=== PATIENT | female | born 1980 | race Caucasian/White ===

== ENCOUNTER → 2020-04-22 | Outpatient (CLI) | payer OTHER ==
[~2020-04-22] MED LIST: ACETAMINOPHEN-1 EAC1 PO; BENZTROPINE MESY1 MG PO; CEFDINIR300 MG PO; CITALOPRAM HBR40 MG PO; CLEOCIN HCL300 MG PO; HALDOL 5 MG TAB5 MG PO; IBUPROFEN600 MG PO; MELOXICAM15 MG PO; METRONIDAZOLE500 MG PO; OLANZAPINE20 MG PO
== END ==
LOC: KOH-I 10:10
DX: M25.562 Pain in left knee (principal); R05 Cough; M54.5 Low back pain; R91.8 Other nonspecific abnormal finding of lung field; J90 Pleural effusion, not elsewhere classified; J98.11 Atelectasis
CPT/HCPCS: 71046; 72100; 73562

== ENCOUNTER → 2020-05-19 | Outpatient (CLI) | payer OTHER | LOC: KOH-I 09:10 | DX: J18.1 Lobar pneumonia, unspecified organism (principal); R91.8 Other nonspecific abnormal finding of lung field | CPT/HCPCS: 71046 ==

== ENCOUNTER → 2020-05-23 | Outpatient (CLI) | payer OTHER | LOC: KOH-I 11:02 | DX: R10.30 Lower abdominal pain, unspecified (principal) | CPT/HCPCS: 73522 ==

== ENCOUNTER 2020-05-29 10:15 | Inpatient (IN) | payer OTHER ==
[~2020-05-29] VITALS: Ht 175.3 cm; Wt 76.7 kg
[~2020-05-29 10:15] MED LIST changes: -ACETAMINOPHEN-1 EAC1 PO; -BENZTROPINE MESY1 MG PO; -CITALOPRAM HBR40 MG PO; -HALDOL 5 MG TAB5 MG PO; -MELOXICAM15 MG PO; -OLANZAPINE20 MG PO
[2020-05-29 11:16] LABS: HEMOGLOBIN 9.8 gm/dl (12.3-15.3); RED BLOOD COUNT 3.63 M/UL (4.00-5.10); WHITE BLOOD COUNT 17.7 K/UL (4.5-11.0)
[2020-05-29 11:39] LABS: BUN/CREATININE RATIO 14 (0-10)
[2020-05-29] MEDS ORDERED: BENZTROPINE MESY1 MG PO (13:44)
[2020-05-29] MEDS ORDERED: CITALOPRAM HBR40 MG PO (13:46)
[2020-05-29] MEDS ORDERED: HALDOL 5 MG TAB5 MG PO (13:48)
[2020-05-29] MEDS ORDERED: MELOXICAM15 MG PO (13:49)
[2020-05-29] MEDS ORDERED: OLANZAPINE20 MG PO (13:51)
[2020-05-29] MEDS ORDERED: ACETAMINOPHEN-1 EAC1 PO (14:37)
[2020-05-29 14:58] LABS: MONONUCLEAR CELLS 89.3 (75-100); POLYMORPHONUCLEAR % 10.7 (0-25); WBC (AUTOMATED) 335 (0-500)
[2020-05-29 14:59] LABS: RBC (AUTOMATED) 2200 (0-100000)
[2020-05-29 15:21] LABS: TOTAL PROTEIN, BODY FLUID 3.6 gm/dL
[2020-05-30 02:23] LABS: HEMOGLOBIN 8.6 gm/dl (12.3-15.3); RED BLOOD COUNT 3.31 M/UL (4.00-5.10); WHITE BLOOD COUNT 13.5 K/UL (4.5-11.0)
[2020-05-30 02:40] LABS: BUN/CREATININE RATIO 16 (0-10)
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
--- NOTE | 2020-05-30 11:00 | NUR ---
NO CHANGES FROM PREVIOUS ASSESSMENT, PT DROWSY AND SLEEPING A LOT
--- NOTE | 2020-05-30 13:50 | NUR ---
DR DOMINGUEZ CALLED TO INFORM ME OF ORDER TO HAVE HOSPITALIST ORDER BIOPSY OF RIGHT BREAST
--- NOTE | 2020-05-30 14:00 | NUR ---
DR SHAY CALLED TO CONSULT SURGERY FOR BIOPSY
--- NOTE | 2020-05-30 14:06 | NUR ---
DR BAGLEY NOTIFIED OF CONSULT FOR RIGHT BREAST BIOPSY
--- NOTE | 2020-05-30 16:00 | NUR ---
NO CHANGES FROM PREVIOUS ASSESSMENT
--- NOTE | 2020-05-31 08:54 | NUR ---
NOTIFIED DR SHAY OF FINDINGS ON HEAD CT THAT WAS RELAYED BY RADIOLOGIST OF A HEMORRHAGIC MASS SEEN. ORDERS TO MAKE SURE SHE'S NOT ON ANY ASA, LOVENOX, NOR HEPARIN.
--- NOTE | 2020-05-31 11:00 | NUR ---
PT A LITTLE MORE ANXIOUS THIS ASSESSMENT, REASSURED PT, OTHERWISE NO NEW CHANGES
--- NOTE | 2020-05-31 11:47 | NUR ---
DR DOMINGUEZ CALLED TO CHECK ON PT STATUS, ASKED FOR ATTENDING PHYSICIAN PHONE NUMBER
[2020-06-01 03:45] LABS: HEMOGLOBIN 8.8 gm/dl (12.3-15.3); RED BLOOD COUNT 3.25 M/UL (4.00-5.10); WHITE BLOOD COUNT 14.8 K/UL (4.5-11.0)
[2020-06-01 04:04] LABS: BUN/CREATININE RATIO 15 (0-10)
--- NOTE | 2020-06-01 20:00 | NUR ---
MD PERFORMED BESIDE THORACENTESIS. PT TOLERATED PROCEDURE WELL, VERBALIZED NEEDS DURING THE PROCEDURE, AND HAD NO COMPLAINTS.
[2020-06-01 21:10] LABS: BODY FLUID SOURCE PLEURAL
[2020-06-01 21:25] LABS: MONONUCLEAR CELLS 80 (75-100); POLYMORPHONUCLEAR % 20 (0-25); RBC (AUTOMATED) 6000 (0-100000); WBC (AUTOMATED) 106 (0-500)
[2020-06-01 21:42] LABS: TOTAL PROTEIN, BODY FLUID 5.9 gm/dL
[2020-06-01 21:43] LABS: LDH, BODY FLUID 745 U/L
[2020-06-02 02:59] LABS: HEMOGLOBIN 8.8 gm/dl (12.3-15.3); RED BLOOD COUNT 3.31 M/UL (4.00-5.10)
[2020-06-02 03:10] LABS: BUN/CREATININE RATIO 17 (0-10)
--- NOTE | 2020-06-02 10:06 | NUR ---
06/02/20 0950 PER RADIOLOGY NO ONE HERE TO DO ULTRASOUND GUIDED BIOPSY THIS WEEK, DR BAGLEY AND NOTIFIED
--- NOTE | 2020-06-02 12:54 | NUR ---
06/02/20 1250 TELE COVARRUBIAS NOTIFIED OF PATIENT GOING FOR A PROCEDURE
[2020-06-03 03:00] LABS: HEMOGLOBIN 9.1 gm/dl (12.3-15.3); RED BLOOD COUNT 3.36 M/UL (4.00-5.10); WHITE BLOOD COUNT 16.5 K/UL (4.5-11.0)
[2020-06-03 03:23] LABS: BUN/CREATININE RATIO 20 (0-10)
--- NOTE | 2020-06-05 05:46 | NUR ---
PT VERY SWEATY AND D/T NOT EATING AND DRINKING, FSBS WAS CHECKED AND IT WAS 144
== END 2020-06-08 19:18 | disposition expired | DRG 871 ==
LOC: ER1 10:15 → MED SURG 4 12:36 → PROG CARE 12:36 → CDU 12:36 → PROG CARE 17:40 → MED SURG 4 06-06 14:23
PROVIDERS: Family Medicine; Physician Assistant Medical; ADMIT Internal Medicine
PROC: 0W993ZZ Drainage of Right Pleural Cavity, Percutaneous Approach (ICD-10-PCS; principal; 2020-05-29)
PROC: 0W993ZX Drainage of Right Pleural Cavity, Percutaneous Approach, Diagnostic (ICD-10-PCS; 2020-05-29)
PROC: 0B9C8ZX Drainage of Right Upper Lung Lobe, Via Natural or Artificial Opening Endoscopic, Diagnostic (ICD-10-PCS; 2020-05-29)
PROC: 0BD38ZX Extraction of Right Main Bronchus, Via Natural or Artificial Opening Endoscopic, Diagnostic (ICD-10-PCS; 2020-05-29)
PROC: 0BD48ZX Extraction of Right Upper Lobe Bronchus, Via Natural or Artificial Opening Endoscopic, Diagnostic (ICD-10-PCS; 2020-05-29)
PROC: 03HY32Z Insertion of Monitoring Device into Upper Artery, Percutaneous Approach (ICD-10-PCS; 2020-05-29)
DX: A41.89 Other specified sepsis (principal); J96.01 Acute respiratory failure with hypoxia; I61.9 Nontraumatic intracerebral hemorrhage, unspecified; Z51.5 Encounter for palliative care; Z66 Do not resuscitate; Z20.822 Contact with and (suspected) exposure to COVID-19; J15.9 Unspecified bacterial pneumonia; G93.41 Metabolic encephalopathy; C78.01 Secondary malignant neoplasm of right lung; C79.51 Secondary malignant neoplasm of bone; C79.31 Secondary malignant neoplasm of brain; C79.72 Secondary malignant neoplasm of left adrenal gland; J44.0 Chronic obstructive pulmonary disease with (acute) lower respiratory infection; J90 Pleural effusion, not elsewhere classified; C79.71 Secondary malignant neoplasm of right adrenal gland; C79.81 Secondary malignant neoplasm of breast; I82.401 Acute embolism and thrombosis of unspecified deep veins of right lower extremity; C78.02 Secondary malignant neoplasm of left lung; D64.9 Anemia, unspecified; R65.20 Severe sepsis without septic shock; R59.1 Generalized enlarged lymph nodes; F20.9 Schizophrenia, unspecified; F31.9 Bipolar disorder, unspecified; F17.210 Nicotine dependence, cigarettes, uncomplicated; I34.0 Nonrheumatic mitral (valve) insufficiency; F43.10 Post-traumatic stress disorder, unspecified; Z83.3 Family history of diabetes mellitus; Z88.0 Allergy status to penicillin; Z87.01 Personal history of pneumonia (recurrent)
CPT/HCPCS: 0240U; 36415; 36600; 70470; 71045; 71046; 71270; 74022; 76641-RT; 80048; 80053; 80307; 81001; 82040; 82550; 82553; 82803; 82945; 82962; 83605; 83615; 83735; 83874; 83880; 84155; 84157; 84439; 84443; 84484; 84703; 85025; 85027; 85610; 87040; 87070; 87205; 87206; 88341; 88342; 89051; 93005; 94664; 94760; 96374; 96375; 99285; J0692; J1100; J2060; J2270; J2704; J2930; J3486; J7040; Q9962; Q9963; Q9967; U0002

== ENCOUNTER → 2020-05-29 | Outpatient (CLI) | payer OTHER | LOC: CT 09:00 | DX: Z53.8 Procedure and treatment not carried out for other reasons (principal) | CPT/HCPCS: 71270; Q9967 ==